=== PATIENT | female | born 1995 | race Caucasian/White ===

== ENCOUNTER 2021-11-25 20:28 | Emergency (ER) | payer OTHER ==
[2021-11-25 20:45] VITALS: TEMP 97.1
--- NOTE | 2021-11-25 21:09 | ED ---
General Adult HPI - General Chief complaint: Arrhythmia/Palpitations Stated complaint: Irregular heartbeat Time Seen by Provider: 11/25/21 20:52 Source: patient Mode of arrival: ambulatory - History of Present Illness Initial comments: Patient presents to the ED with her boyfriend for evaluation. Patient states that for the past couple of months or so, she has been experiencing intermittent rapid heart palpitations and anxiety. Patient states that her symptoms became much more severe this evening while at the store. Patient reports having rapid heart palpitations, a feeling of panic, and associated chest tightness and dyspnea. Patient's boyfriend reports that the patient was hyperventilating at the store this evening. Patient states that her symptoms have currently improved, but she still feels quite anxious. Patient admits to marijuana use earlier today. Patient denies any other illicit drug use today. Patient denies trauma or injury, fever or chills, headache, focal neuro deficit, neck/arm/jaw/back pain, pleuritic pain, cough or cold symptoms, dizziness, syncope, nausea/vomiting/diarrhea, abdominal pain, dysuria or urinary symptoms, leg or calf swelling or pain, or any other symptoms or complaints. Patient states that she is vaccinated for Covid. Patient denies oral contraceptive pill use. - Related Data Home Medications Medication Instructions Recorded Confirmed Multivitamins, Thera [Multivitamin 1 tab PO DAILY 11/25/21 11/25/21 (formulary)] [place]-3 Fatty Acids/Fish Oil [Fish 1 cap PO DAILY 11/25/21 11/25/21 Oil 1,000 mg Softgel] Allergies Allergy/AdvReac Type Severity Reaction Status Date / Time sulfamethoxazole Allergy Rash/Hives Verified 11/25/21 21:22 [From Bactrim] trimethoprim [From Bactrim] Allergy Rash/Hives Verified 11/25/21 21:22 Review of Systems ROS Statement: Those systems with pertinent positive or pertinent negative responses have been documented in the HPI. ROS Other: All systems not noted in ROS Statement are negative. Past Medical History Additional Past Medical History / Comment(s): possible dx for irregular heart beat History of Any Multi-Drug Resistant Organisms: None Reported Past Surgical History: No Surgical Hx Reported Past Psychological History: Anxiety, Depression Smoking Status: Never smoker Past Alcohol Use History: Occasional Past Drug Use History: Marijuana General Exam Limitations: no limitations General appearance: alert, in no apparent distress Head exam: Present: atraumatic, normocephalic Eye exam: Present: normal appearance, PERRL, EOMI ENT exam: Present: mucous membranes moist Neck exam: Present: other (Trachea is in midline) Respiratory exam: Present: normal lung sounds bilaterally. Absent: respiratory distress, wheezes, rales, rhonchi, stridor, chest wall tenderness Cardiovascular Exam: Present: normal rhythm, tachycardia, normal heart sounds, other (Normal radial pulses bilaterally) GI/Abdominal exam: Present: soft. Absent: distended, tenderness, guarding Extremities exam: Present: other (Negative Homans sign bilaterally). Absent: tenderness, pedal edema, calf tenderness Neurological exam: Present: alert, oriented X3. Absent: motor sensory deficit Psychiatric exam: Present: anxious Skin exam: Present: warm, dry, intact, normal color Course Vital Signs 11/25/21 11/25/21 11/25/21 20:39 22:17 23:29 Temperature 97.1 F L Pulse Rate 143 H 106 H 120 H Respiratory 22 16 Rate Blood Pressure 142/77 121/74 O2 Sat by Pulse 100 99 Oximetry - Reevaluation(s) Reevaluation #1: 11/25/21 23:49 Patient states that her symptoms have now improved, and she denies development of any new symptoms while in the ED. Patient remains in sinus tachycardia on the vegetable buncher, but her heart rate has improved significantly. Patient remains alert and breathing comfortably with a normal room air oxygen saturation. Patient and boyfriend are aware the patient's test results, and patient feels comfortable going home with her boyfriend at this time. She was counseled about palpitations, anxiety and substance abuse. She was clearly explained return and follow-up instructions, and she was instructed to have a low threshold for return to the emergency department should her symptoms worsen. Patient feels comfortable with this plan. Patient was also instructed to follow up closely with her primary care provider. EKG Findings - EKG Comments: EKG Findings:: Sinus tachycardia, ventricular rate of 144 bpm, no ectopy, normal OK and QRS interval, QTc interval of 548 ms, normal axis, nonspecific ST abnormality Medical Decision Making - Medical Decision Making Patient's chest x-ray is unremarkable. Patient's labs are also fairly unremarkable, including a negative troponin and d-dimer. Patient's urine drug screen is positive for cocaine and marijuana. I suspect the patient's symptoms are likely secondary to anxiety and/or substance abuse. I do not suspect an emergent medical condition at this time. Will discharge patient home with her boyfriend this time. - Lab Data Result diagrams: 11/25/21 21:38 11/25/21 21:38 Lab Results 11/25/21 11/25/21 11/25/21 Range/Units 21:38 21:38 21:38 WBC 13.3 H (3.8-10.6) k/uL RBC 4.09 (3.80-5.40) m/uL Hgb 13.1 (11.4-16.0) gm/dL Hct 38.6 (34.0-46.0) % MCV 94.4 (80.0-100.0) fL MCH 32.0 (25.0-35.0) pg MCHC 33.9 (31.0-37.0) g/dL RDW 11.9 (11.5-15.5) % Plt Count 309 (150-450) k/uL MPV 7.6 Neutrophils % 78 % Lymphocytes % 16 % Monocytes % 4 % Eosinophils % 0 % Basophils % 0 % Neutrophils # 10.4 H (1.3-7.7) k/uL Lymphocytes # 2.2 (1.0-4.8) k/uL Monocytes # 0.5 (0-1.0) k/uL Eosinophils # 0.1 (0-0.7) k/uL Basophils # 0.0 (0-0.2) k/uL PT 10.2 (9.0-12.0) sec INR 0.9 (<1.2) APTT 24.3 (22.0-30.0) sec D-Dimer 0.19 (<0.60) mg/L FEU Sodium 141 (137-145) mmol/L Potassium 3.5 (3.5-5.1) mmol/L Chloride 106 (98-107) mmol/L Carbon Dioxide 22 (22-30) mmol/L Anion Gap 13 mmol/L BUN 14 (7-17) mg/dL Creatinine 1.17 H (0.52-1.04) mg/dL Est GFR (CKD-EPI)AfAm 74 (>60 ml/min/1.73 sqM) Est GFR (CKD-EPI)NonAf 65 (>60 ml/min/1.73 sqM) Glucose 161 H (74-99) mg/dL Calcium 9.8 (8.4-10.2) mg/dL Magnesium 1.6 (1.6-2.3) mg/dL Total Bilirubin 0.4 (0.2-1.3) mg/dL AST 26 (14-36) U/L ALT 22 (4-34) U/L Alkaline Phosphatase 84 (38-126) U/L Troponin I (0.000-0.034) ng/mL Total Protein 7.5 (6.3-8.2) g/dL Albumin 4.4 (3.5-5.0) g/dL TSH 1.240 (0.465-4.680) mIU/L HCG, Qual Not Detected Urine Opiates Screen (NotDetected) Ur Oxycodone Screen (NotDetected) Urine Methadone Screen (NotDetected) Ur Propoxyphene Screen (NotDetected) Ur Barbiturates Screen (NotDetected) U Tricyclic Antidepress (NotDetected) Ur Phencyclidine Scrn (NotDetected) Ur Amphetamines Screen (NotDetected) U Methamphetamines Scrn (NotDetected) U Benzodiazepines Scrn (NotDetected) Urine Cocaine Screen (NotDetected) U Marijuana (THC) Screen (NotDetected) 11/25/21 11/25/21 Range/Units 21:38 22:48 WBC (3.8-10.6) k/uL RBC (3.80-5.40) m/uL Hgb (11.4-16.0) gm/dL Hct (34.0-46.0) % MCV (80.0-100.0) fL MCH (25.0-35.0) pg MCHC (31.0-37.0) g/dL RDW (11.5-15.5) % Plt Count (150-450) k/uL MPV Neutrophils % % Lymphocytes % % Monocytes % % Eosinophils % % Basophils % % Neutrophils # (1.3-7.7) k/uL Lymphocytes # (1.0-4.8) k/uL Monocytes # (0-1.0) k/uL Eosinophils # (0-0.7) k/uL Basophils # (0-0.2) k/uL PT (9.0-12.0) sec INR (<1.2) APTT (22.0-30.0) sec D-Dimer (<0.60) mg/L FEU Sodium (137-145) mmol/L Potassium (3.5-5.1) mmol/L Chloride (98-107) mmol/L Carbon Dioxide (22-30) mmol/L Anion Gap mmol/L BUN (7-17) mg/dL Creatinine (0.52-1.04) mg/dL Est GFR (CKD-EPI)AfAm (>60 ml/min/1.73 sqM) Est GFR (CKD-EPI)NonAf (>60 ml/min/1.73 sqM) Glucose (74-99) mg/dL Calcium (8.4-10.2) mg/dL Magnesium (1.6-2.3) mg/dL Total Bilirubin (0.2-1.3) mg/dL AST (14-36) U/L ALT (4-34) U/L Alkaline Phosphatase (38-126) U/L Troponin I <0.012 (0.000-0.034) ng/mL Total Protein (6.3-8.2) g/dL Albumin (3.5-5.0) g/dL TSH (0.465-4.680) mIU/L HCG, Qual Urine Opiates Screen Not Detected (NotDetected) Ur Oxycodone Screen Not Detected (NotDetected) Urine Methadone Screen Not Detected (NotDetected) Ur Propoxyphene Screen Not Detected (NotDetected) Ur Barbiturates Screen Not Detected (NotDetected) U Tricyclic Antidepress Not Detected (NotDetected) Ur Phencyclidine Scrn Not Detected (NotDetected) Ur Amphetamines Screen Not Detected (NotDetected) U Methamphetamines Scrn Not Detected (NotDetected) U Benzodiazepines Scrn Not Detected (NotDetected) Urine Cocaine Screen Detected H (NotDetected) U Marijuana (THC) Screen Detected H (NotDetected) - Radiology Data Chest x-ray: No acute cardiopulmonary process. Disposition Clinical Impression: Palpitations, Anxiety, Substance abuse Disposition: HOME SELF-CARE Condition: Stable Instructions (If sedation given, give patient instructions): Heart Palpitations (ED), Cocaine Abuse (ED), Anxiety (ED) Additional Instructions: Return to the ER immediately should you develop new or worsening pain, increased shortness of breath, feeling dizzy or faint, or new or worsening symptoms. Follow up closely with your primary care provider. Is patient prescribed a controlled substance at d/c from ED?: No Referrals: Stephanie Garcia MD [Primary Care Provider] - 1-2 days Time of Disposition: 23:52
[2021-11-25] MEDS ORDERED: SODIUM CHLORIDE 0.9% 1,000 ML IV STA (21:16)
[2021-11-25] MEDS ORDERED: LORazepam 2 MG/ML INJ IV STA (21:16)
--- NOTE | 2021-11-25 21:55 | XR ---
EXAMINATION TYPE: XR chest 2V DATE OF EXAM: 11/25/2021 COMPARISON: NONE HISTORY: Irregular heart rate. TECHNIQUE: Frontal and lateral views of the chest are obtained. FINDINGS: There is no focal air space opacity, pleural effusion, or pneumothorax seen. The cardiac silhouette size is within normal limits. The osseous structures are intact. IMPRESSION: No acute cardiopulmonary process.
[2021-11-25 22:04] LABS: Basophils % (A) 0 %; Eosinophils # (A) 0.1 k/uL (0-0.7); Eosinophils % (A) 0 %; HCT 38.6 % (34.0-46.0); HGB 13.1 gm/dL (11.4-16.0); Lymphocytes # (A) 2.2 k/uL (1.0-4.8); Lymphocytes % (A) 16 %; MCHC 33.9 g/dL (31.0-37.0); MCV 94.4 fL (80.0-100.0); Mean Platelet Volume 7.6; Monocytes # (A) 0.5 k/uL (0-1.0); Monocytes % (A) 4 %; Neutrophils # (A) 10.4 k/uL (1.3-7.7); Neutrophils % (A) 78 %; Platelet Count 309 k/uL (150-450); RBC 4.09 m/uL (3.80-5.40); RDW 11.9 % (11.5-15.5); WBC 13.3 k/uL (3.8-10.6)
[2021-11-25 22:15] LABS: ALT 22 U/L (4-34); AST 26 U/L (14-36); African American GFR (CKD) 74 (>60 ml/min/1.73 sqM); Albumin 4.4 g/dL (3.5-5.0); Alkaline Phosphatase 84 U/L (38-126); Anion Gap 13 mmol/L; Blood Urea Nitrogen 14 mg/dL (7-17); Calcium 9.8 mg/dL (8.4-10.2); Carbon Dioxide 22 mmol/L (22-30); Chloride 106 mmol/L (98-107); Glucose 161 mg/dL (74-99); Magnesium 1.6 mg/dL (1.6-2.3); Non-African American GFR(CKD) 65 (>60 ml/min/1.73 sqM); Potassium 3.5 mmol/L (3.5-5.1); Sodium 141 mmol/L (137-145); Total Bilirubin 0.4 mg/dL (0.2-1.3); Total Protein 7.5 g/dL (6.3-8.2)
[2021-11-25 22:49] LABS: INR 0.9 (<1.2); Prothrombin Time 10.2 sec (9.0-12.0)
[2021-11-25 22:50] LABS: Partial Thromboplastin Time 24.3 sec (22.0-30.0)
[2021-11-25 23:28] LABS: HCG,Qualitative Serum Not Detected
[2021-11-25 23:30] VITALS: BP 121/74; PULSE 120; RESP 16
[2021-11-25 23:44] LABS: Amphetamine Screen,Urine Not Detected (NotDetected); Barbiturate Screen,Urine Not Detected (NotDetected); Benzodiazepines Screen,Urine Not Detected (NotDetected); Cocaine Screen,Urine Detected (NotDetected); Methadone Screen, Urine Not Detected (NotDetected); Opiate Screen,Urine Not Detected (NotDetected); Oxycodone Screen, Urine Not Detected (NotDetected); Phencyclidine Screen,Urine Not Detected (NotDetected); Tricyclic Antidepressant,Urine Not Detected (NotDetected); Urn Cannabinoid Scrn Detected (NotDetected)
== END 2021-11-25 23:59 | disposition home or self-care (01) ==
LOC: EC 20:28
DX: R00.2 Palpitations (principal); F41.9 Anxiety disorder, unspecified; F14.10 Cocaine abuse, uncomplicated; F32.A Depression, unspecified; F12.90 Cannabis use, unspecified, uncomplicated; Z72.89 Other problems related to lifestyle
CPT/HCPCS: 36415; 93005; 85379; 80053; 83735; 84443; 84484; 85025; 85610; 85730; 84703; 80306; 71046; 99285; 96374; 96361 ×2; J2060

== ENCOUNTER 2023-06-18 05:57 | Inpatient (IN) | payer OTHER ==
[2023-06-18] MEDS ORDERED: TERBUTALINE 1 MG/ML VIAL SQ PRN (06:26)
[2023-06-18] MEDS ORDERED: TRANEXAMIC 1,000 MG/100ML-NACL 1,000 MG in EMPTY BAG 1 BAG IV PRN (06:26)
[2023-06-18] MEDS ORDERED: CARBOPROST TROMETHAMINE 250 MCG/ML 1 ML AMP IM PRN (06:26)
[2023-06-18] MEDS ORDERED: miSOPROStoL 200 MCG TAB PO PRN (06:26)
[2023-06-18] MEDS ORDERED: OXYTOCIN 10 UNIT/ML 1 ML VIAL IM PRN (06:26)
[2023-06-18] MEDS ORDERED: METHYLERGONOVINE 0.2 MG/ML 1 ML AMP IM PRN (06:26)
[2023-06-18] MEDS ORDERED: LIDOCAINE 0.5% (PF) 5 MG/ML (50 ML SDV) SQ PRN (06:26)
[2023-06-18] MEDS ORDERED: OXYTOCIN 30 UNITS/500 ML NS 30 UNIT in SALINE 1 500ML.BAG IV SCH ×2 (06:30→12:30)
[2023-06-18] MEDS: LACTATED RINGERS 1,000 ML IV SCH ×2 (06:31→10:01)
[2023-06-18 07:04] LABS: Basophils % (A) 0 %; Eosinophils % (A) 0 %; HCT 35.2 % (34.0-46.0); HGB 12.5 gm/dL (11.4-16.0); Lymphocytes # (A) 1.9 k/uL (1.0-4.8); Lymphocytes % (A) 21 %; MCH 33.7 pg (25.0-35.0); MCHC 35.5 g/dL (31.0-37.0); MCV 94.7 fL (80.0-100.0); Mean Platelet Volume 11.2; Monocytes # (A) 0.6 k/uL (0-1.0); Monocytes % (A) 6 %; Neutrophils # (A) 6.6 k/uL (1.3-7.7); Neutrophils % (A) 71 %; Platelet Count 139 k/uL (150-450); RBC 3.72 m/uL (3.80-5.40); RDW 13.8 % (11.5-15.5); WBC 9.3 k/uL (3.8-10.6)
--- NOTE | 2023-06-18 08:35 | P.HPOB ---
History of Present Illness H&P Date: 06/18/23 Chief Complaint: Elective induction of labor Ms. Edwards is a 27 year old at 40 weeks with EDC of 06/18/2023 (by LMP consistent with 8 week US) who is being induced today for post-dates. The has been complicated by anxiety and depression which have been stable without medications. The patient also has a history of HSV. Her last outbreak was years ago. She started Valtrex prophylaxis at 36 weeks. The fetus is estimated to be approximately 9 pounds by 37 week US (measuring the fetus in the 77%ile). Obstetric history: 1 FTVD infant weighing 7#5 ounces, no complications Maternal work-up: blood type O positive, antibody screen negative, rubella immune, VDRL non-reactive, HBsAg negative, HIV negative, 1 hour GTT 121, GBS negative Past medical history: anxiety, depression, HSV Type II Past surgical history: None Medications: PNVs, Valtrex Past Medical History Additional Past Medical History / Comment(s): possible dx for irregular heart beat History of Any Multi-Drug Resistant Organisms: None Reported Past Surgical History: No Surgical Hx Reported Past Anesthesia/Blood Transfusion Reactions: No Reported Reaction Additional Past Anesthesia/Blood Transfusion Reaction / Comment(s): Patient has never received blood products or anesthesia Past Psychological History: Anxiety, Depression Smoking Status: Vaper Past Alcohol Use History: Occasional Medications and Allergies Home Medications Medication Instructions Recorded Confirmed Type Vit No.179/Iron/Folic 1 each PO DAILY 06/18/23 06/18/23 History [ Tablet] Allergies Allergy/AdvReac Type Severity Reaction Status Date / Time sulfamethoxazole Allergy Rash/Hives Verified 06/18/23 06:26 [From Bactrim] trimethoprim [From Bactrim] Allergy Rash/Hives Verified 06/18/23 06:26 Exam Vital Signs Temp Pulse Resp BP Pulse Ox 06/18/23 06:26 97.1 F L 95 16 143/85 97 Intake and Output 06/17/23 06/18/23 06/18/23 22:59 06:59 14:59 Other: Weight 81.647 kg Focused physical exam is performed. This is a healthy-appearing in no apparent distress. She has non-labored breathing and is conversing normally. Abdomen is gravid, non-tender. Cervical exam is 4/80/-2. AROM is undertaken for clear fluid. Extremities are non-tender, non-edematous. heart tracing sh ows 120 baseline, moderate variability, + accelerations, no decelerations. Tocometer is graphing contractions every 2-5 minutes. Pitocin is running. Results Result Diagrams: 06/18/23 06:45 Abnormal Lab Results - Last 24 Hours (Table) 06/18/23 Range/Units 06:45 RBC 3.72 L (3.80-5.40) m/uL Plt Count 139 L (150-450) k/uL Assessment and Plan Assessment: 27 year old at 40 weeks presenting for IOL Plan: Admit, NPO, mIVF, pitocin per protocol, epidural prn. Continious electronic monitoring, close monitoring of patient. Time with Patient: Less than 30
[2023-06-18] MEDS ORDERED: ROPIVACAINE 5 MG/ML 20 ML AMPULE ONE (09:32)
[2023-06-18] MEDS ORDERED: SODIUM CHLORIDE 0.9% 100 ML BAG ONE (09:32)
[2023-06-18] MEDS ORDERED: fentaNYL (PF) 50 MCG/ML 5 ML AMP ONE (09:32)
[2023-06-18] MEDS ORDERED: SIMETHICONE 80 MG CHEWABLE PO PRN (12:29)
[2023-06-18] MEDS ORDERED: HYDROCORTISONE 2.5% RECTAL CREAM 30 GM TUBE RECTAL PRN (12:29)
[2023-06-18] MEDS ORDERED: LANOLIN CREAM 5 GM TUBE TOPICAL PRN (12:29)
[2023-06-18] MEDS ORDERED: ACETAMINOPHEN TAB 325 MG TAB PO PRN (12:29)
[2023-06-18] MEDS ORDERED: diphenhydrAMINE 50 MG/ML 1 ML VIAL IVP PRN ×2 (12:29)
[2023-06-18] MEDS ORDERED: ZOLPIDEM 5 MG TAB PO PRN (12:29)
[2023-06-18] MEDS ORDERED: diphenhydrAMINE 25 MG CAP PO PRN (12:29)
[2023-06-18] MEDS ORDERED: diphenhydrAMINE 50 MG CAP PO PRN (12:29)
[2023-06-18] MEDS ORDERED: BENZOCAINE/MENTHOL SPRAY 1 GM/SPRAY AEROSOL TOPICAL PRN (12:29)
--- NOTE | 2023-06-18 12:34 | P.PROBDLV ---
Vaginal Delivery Note - . Vaginal Delivery Note: DATE OF SERVICE: 06/18/2023 PROCEDURE: Normal Vaginal Delivery ATTENDING: Dr. Giovanna Collazo MD ESTIMATED BLOOD LOSS: 200 mL FINDINGS: VMI, Apgars 8/9. Weight 9 pounds and 12 ounces (4425 grams) PROCEDURE: Ms. Edwards is a 27 year old at 40 weeks presenting to labor and delivery for elective induction of labor. The has been complicated by anxiety and depression that did not require medication. For further details, please review the admitting H&P. Pitocin induction was started and AROM was undertaken at 821 revealing clear amniotic fluid. The patient received epidural anesthesia per her request. heart tones were Category I throughout the first stage of labor. The patient was completely dilated at 1127. During the second stage of labor, recurrent deep decelerations to the 70s were noted that resolved with position changes and supplemental oxygen. The patient pushed the head effectively so pushing efforts were continued. The head crowned and delivered over an intact perineum, followed by the shoulders and the body. A via ble male infant was delivered at 1159. The was placed on the maternal abdomen and bulb suctioned. Cord was clamped and cut after a 30-second delay. The was handed off to the pediatric team. Placenta was delivered whole with gentle cord traction at 1204. Oxytocin was started to facilitate uterine tone. Uterine fundus was found to be firm and below the umbilicus upon fundal massage. Thorough examination of the cervix, vagina, periurethral area, and perineum revealed a midline second degree laceration. This was repaired with 2-0 and 3-0 Vicryl in the usual fashion. The patient is stable and allowed to begin the bonding process. Patient stable .
[2023-06-18] MEDS: IBUPROFEN 600 MG TAB PO PRN (13:02)
[2023-06-18 16:37] VITALS: RESP 16
[2023-06-18] MEDS: SENNOSIDES-DOCUSATE SODIUM 1 EACH TAB PO SCH (20:41)
[2023-06-19] MEDS: IBUPROFEN 600 MG TAB PO PRN ×3 (01:20→10:32)
[2023-06-19] MEDS: LACTATED RINGERS 1,000 ML IV SCH (06:47)
[2023-06-19 06:54] LABS: Basophils % (A) 0 %; Eosinophils % (A) 0 %; HCT 32.4 % (34.0-46.0); HGB 11.5 gm/dL (11.4-16.0); Lymphocytes % (A) 18 %; MCH 33.6 pg (25.0-35.0); MCHC 35.5 g/dL (31.0-37.0); MCV 94.7 fL (80.0-100.0); Mean Platelet Volume 10.9; Monocytes # (A) 0.7 k/uL (0-1.0); Monocytes % (A) 6 %; Neutrophils # (A) 8.3 k/uL (1.3-7.7); Neutrophils % (A) 75 %; Platelet Count 115 k/uL (150-450); RBC 3.42 m/uL (3.80-5.40); RDW 13.9 % (11.5-15.5); WBC 11.1 k/uL (3.8-10.6)
--- NOTE | 2023-06-19 08:03 | P.DS ---
Providers Date of admission: 06/18/23 05:57 Expected date of discharge: 06/19/23 Attending physician: Giovanna Collazo MD Primary care physician: Stated None Hospital Course: This is a 27-year-old now day #1 status post a normal vaginal delivery following elective induction of labor at 40 weeks gestation. Labor progressed normally with Pitocin induction and AROM revealing clear amniotic fluid. The patient pushed for approximately 20 minutes and had a viable male . Her course has been uneventful, and she desires discharge home today. The patient is doing well this morning and had no acute events overnight. She has no complaints this morning. She reports minimal lochia, passing flatus, voiding without difficulty, ambulating, and eating/drinking without nausea or vomiting. Infant doing well at bedside, s/p circumcision. She denies chest pain, shortness of breathing, fevers, or chills overnight. She denies pain or swelling in the legs. restrictions are reviewed with the patient including pelvic rest for 6 weeks. The patient is encouraged to call the office if she experiences any heavy bleeding, foul-smelling discharge, breast complaints, or any if she has any other concerns. She will follow up in the office in 6 weeks for appointment. All questions are answered. Assessment: 27 year old PPD#1 s/p normal vaginal delivery of viable female Patient Condition at Discharge: Good Plan - Discharge Summary New Discharge Prescriptions: New Ibuprofen [Motrin] 600 mg PO Q6HR PRN #30 tab PRN Reason: Mild Pain (Scale 1 To 3) Acetaminophen Tab [Tylenol] 650 mg PO Q6H PRN #30 tab PRN Reason: Mild Pain (Scale 1 To 3) No Action Vit No.179/Iron/Folic [ Tablet] 1 each PO DAILY Discharge Medication List Vit No.179/Iron/Folic [ Tablet] 1 each PO DAILY 06/18/23 [History] Acetaminophen Tab [Tylenol] 650 mg PO Q6H PRN #30 tab 06/19/23 [Rx] Ibuprofen [Motrin] 600 mg PO Q6HR PRN #30 tab 06/19/23 [Rx] Follow up Appointment(s)/Referral(s): Giovanna Collazo MD [STAFF PHYSICIAN] - 6 Weeks Activity/Diet/Wound Care/Special Instructions: Instructions 1. Do not begin any exercise program for 3 weeks. 2. Do not resume sexual relations for 6 weeks or longer if uncomfortable. 3. You may take tub baths or showers at any time. 4. You may use tampons if desired after 6 weeks. 5. Keep any areas repaired with stitches clean and dry. 6. If you are not nursing, wear a good fitting, supportive bra during the day and limit fluid intake for at least 1 week to prevent breast engorgement. 7. Call the office, , within the next week to make appointment for your 6 week checkup if it has not already been made. 8. Report any of the following occurrences to the doctor promptly: a. Heavy, excessive bleeding b. Chills, fever c. Burning or frequency of urination d. Pain or redness and breasts if nursing e. Increasing pain or swelling of vulva (stitches). Discharge Disposition: HOME SELF-CARE
[2023-06-19 08:15] VITALS: BP 119/81; PULSE 89; TEMP 98.2
[2023-06-19] MEDS: SENNOSIDES-DOCUSATE SODIUM 1 EACH TAB PO SCH (08:15)
== END 2023-06-19 13:45 | disposition home or self-care (01) | DRG 560 ==
LOC: 4FBP 05:57
PROVIDERS: ADMIT Obstetrics & Gynecology; ATTEND Obstetrics & Gynecology
PROC: 10907ZC Drainage of Amniotic Fluid, Therapeutic from Products of Conception, Via Natural or Artificial Opening (ICD-10-PCS; principal; 2023-06-18)
PROC: 3E033VJ Introduction of Other Hormone into Peripheral Vein, Percutaneous Approach (ICD-10-PCS; 2023-06-18)
PROC: 10E0XZZ Delivery of Products of Conception, External Approach (ICD-10-PCS; 2023-06-18)
PROC: 0KQM0ZZ Repair Perineum Muscle, Open Approach (ICD-10-PCS; 2023-06-18)
DX: O48.0 Post-term pregnancy (principal); F32.A Depression, unspecified; F41.9 Anxiety disorder, unspecified; O70.1 Second degree perineal laceration during delivery; O99.344 Other mental disorders complicating childbirth; Z37.0 Single live birth; Z3A.40 40 weeks gestation of pregnancy
CPT/HCPCS: 85025; 86850; 86900; 86901

== ENCOUNTER 2024-01-08 07:19 | Emergency (ER) | payer OTHER ==
--- NOTE | 2024-01-08 08:08 | ED ---
URI HPI - General Chief Complaint: Upper Respiratory Infection Stated Complaint: poss rsv/flu Time Seen by Provider: 01/08/24 07:37 Source: patient, RN notes reviewed Mode of arrival: ambulatory Limitations: no limitations - History of Present Illness Initial Comments: This is a 28-year-old female who presents to the emergency department for coughing and congestion. Symptoms started a couple of days ago. She brought her 6-month-old to the emergency department 2 days ago and he tested positive for influenza and RSV. She has now started to develop coughing, some shortness of breath, and a burning sensation in her chest. States that she feels like this is from the coughing. It does not feel like acid reflux. She did have some nausea and bodyaches that have since started to improve. She has also had fevers and headaches. Her largest concern is wanting to make sure that there is nothing else going on that she can pass on to her infant. MD Complaint: cough, nasal congestion - Related Data Home Medications Medication Instructions Recorded Confirmed Vit No.179/Iron/Folic 1 each PO DAILY 06/18/23 06/18/23 [ Tablet] Previous Rx's Medication Instructions Recorded Acetaminophen Tab [Tylenol] 650 mg PO Q6H PRN #30 tab 06/19/23 Ibuprofen [Motrin] 600 mg PO Q6HR PRN #30 tab 06/19/23 Ipratropium-Albuterol Nebulize 3 ml INHALATION Q4-6H PRN #90 ml 01/08/24 [Duoneb 0.5 mg-3 mg/3 ml Soln] Promethazine/Dextromethorphan 5 ml PO Q4-6H PRN #473 ml 01/08/24 [Promethazine-Dm Syrup] Allergies Allergy/AdvReac Type Severity Reaction Status Date / Time sulfamethoxazole Allergy Rash/Hives Verified 06/18/23 06:26 [From Bactrim] trimethoprim [From Bactrim] Allergy Rash/Hives Verified 06/18/23 06:26 Review of Systems ROS Statement: Those systems with pertinent positive or pertinent negative responses have been documented in the HPI. ROS Other: All systems not noted in ROS Statement are negative. Past Medical History Additional Past Medical History / Comment(s): possible dx for irregular heart beat History of Any Multi-Drug Resistant Organisms: None Reported Past Surgical History: No Surgical Hx Reported Past Anesthesia/Blood Transfusion Reactions: No Reported Reaction Additional Past Anesthesia/Blood Transfusion Reaction / Comment(s): Patient has never received blood products or anesthesia Past Psychological History: Anxiety, Depression Past Alcohol Use History: None Reported, Occasional General Exam Limitations: no limitations General appearance: alert, in no apparent distress Head exam: Present: atraumatic, normocephalic, normal inspection Respiratory exam: Present: normal lung sounds bilaterally. Absent: respiratory distress, wheezes, rales, rhonchi, stridor Cardiovascular Exam: Present: regular rate, normal rhythm, normal heart sounds. Absent: systolic murmur, diastolic murmur, rubs, gallop, clicks GI/Abdominal exam: Present: soft, normal bowel sounds. Absent: distended, tenderness, guarding, rebound, rigid Neurological exam: Present: alert, oriented X3, CN II-XII intact Psychiatric exam: Present: normal affect, normal mood Skin exam: Present: warm, dry, intact, normal color. Absent: rash Course Vital Signs 01/08/24 01/08/24 01/08/24 07:30 09:22 09:32 Temperature 99.6 F Pulse Rate 88 90 86 Respiratory 16 Rate Blood Pressure 117/81 O2 Sat by Pulse 98 Oximetry 01/08/24 09:46 Temperature 99.1 F Pulse Rate 89 Respiratory 18 Rate Blood Pressure 126/89 O2 Sat by Pulse 98 Oximetry Medical Decision Making - Medical Decision Making This is a 28 year old female who presents to the emergency department for coughing and congestion. Was pt. sent in by a medical professional or institution? @ -No Did you speak to anyone other than the patient for history? @ -No Did you review nursing and triage notes? @ -Yes, and I agree, it is accurate with regards to the patient's symptoms. Were old charts reviewed? @ -No Differential Diagnosis? @ -Differential Cough: Influenza, Covid, RSV, croup, allergic rhinitis, GERD, pneumonia, bronchitis, COPD, viral pharyngitis, streptococcal pharyngitis, this is not meant to be an all-inclusive list. EKG interpreted by me (3pts min.)? @ -Not obtained X-rays interpreted by me (1pt min.)? @ -Chest x-ray obtained, my interpretation identifies no localized consolidations or infiltrates. CT interpreted by me (1pt min.)? @ -Not obtained U/S interpreted by me (1pt. min.)? @ -Not obtained What testing was considered but not performed? (CT, X-rays, U/S, labs)? Why? @ -None What meds were considered but not given? Why? @ -None Did you discuss the management of the patient with other professionals? @ -No Did you reconcile home meds? @ -No Was smoking cessation discussed for >3mins.? @ -No Was critical care preformed (if so, how long)? @ -No Were there social determinants of health that impacted care today? How? (Homelessness, low income, unemployed, alcoholism, drug addiction, transportation, low edu. Level, literacy, decrease access to med. care, group home, rehab)? @ -No Was there de-escalation of care discussed even if they declined? (Discuss DNR or withdrawal of care, Hospice)? @ -No What co-morbidities impacted this encounter? (DM, HTN, Smoking, COPD, CAD, Cancer, CVA, Hep., AIDS, mental health diagnosis, sleep apnea, morbid obesity)? @ -None Was patient admitted / discharged? @ -Discharged. Patient positive for influenza A. COVID and RSV testing negative. Chest x-ray reveals no acute process. She was given a DuoNeb breathing treatment and Tessalon Perles, but did not find significant benefit with these. Prescription for Promethazine DM cough syrup provided with dosing instructions reviewed to see if that is more effective. She was also given a prescription for DuoNeb breathing treatments to use at home if she would like to try them again. Otherwise advised getting plenty of rest and drinking plenty of fluids. Patient discharged home in stable condition. Undiagnosed new problem with uncertain prognosis? @ -None Drug Therapy requiring intensive monitoring for toxicity (Heparin, Nitro, Insulin, Cardizem)? @ -None Were any procedures done? @ -None Diagnosis/symptom? @ -Influenza A Acute, or Chronic, or Acute on Chronic? @ -Acute Uncomplicated (without systemic symptoms) or Complicated (systemic symptoms)? @ -Uncomplicated Side effects of treatment? @ -None Exacerbation, Progression, or Severe Exacerbation] @ -Not applicable Poses a threat to life or bodily function? @ -No Return precautions reviewed in depth, the patient is instructed to return to the emergency department with any new, worsening, or concerning symptoms. Patient verbalized understanding. This case was discussed in detail with the attending ED physician, Dr. Valverde. Presentation, findings, and treatment plan discussed in detail as well. - Lab Data Lab Results 01/08/24 Range/Units 07:59 Influenza Type A (PCR) Detected A (Not Detectd) Influenza Type B (PCR) Not Detected (Not Detectd) RSV (PCR) Not Detected (Not Detectd) SARS-CoV-2 (PCR) Not Detected (Not Detectd) - Radiology Data Radiology results: report reviewed, image reviewed Disposition Clinical Impression: Influenza A Disposition: HOME SELF-CARE Instructions (If sedation given, give patient instructions): Influenza (ED) Additional Instructions: Return to the emergency department with any new, worsening, or concerning symptoms. Both the DuoNeb breathing treatments and cough medication can be used every 4-6 hours. Make sure you get plenty of rest and drink plenty of fluids. Follow up with your primary care provider in 1-2 days. Prescriptions: Ipratropium-Albuterol Nebulize [Duoneb 0.5 mg-3 mg/3 ml Soln] 3 ml INHALATION Q4-6H PRN #90 ml PRN Reason: Cough Promethazine/Dextromethorphan [Promethazine-Dm Syrup] 5 ml PO Q4-6H PRN #473 ml PRN Reason: Cough Is patient prescribed a controlled substance at d/c from ED?: No Referrals: Stephanie Garcia MD [Primary Care Provider] - 1-2 days Time of Disposition: 09:44
[2024-01-08] MEDS: BENZONATATE 100 MG CAP PO STA (08:26)
--- NOTE | 2024-01-08 08:41 | XR ---
EXAMINATION TYPE: XR chest 2V DATE OF EXAM: 01/08/2024 8:20 AM CLINICAL INDICATION:Female, 28 years old with history of cough; COMPARISON: Chest radiographs from 11/25/2021 TECHNIQUE: XR chest 2V Frontal and lateral views of the chest. FINDINGS: Lungs/Pleura: There is no evidence of pleural effusion, focal consolidation, or pneumothorax. Pulmonary vascularity: Unremarkable. Heart/mediastinum: Cardiomediastinal silhouette is unremarkable. Musculoskeletal: No acute osseous pathology. IMPRESSION: No acute cardiopulmonary disease/process.
[2024-01-08] MEDS: IPRATROPIUM-ALBUTEROL 3 ML NEB INHALATION STA (09:20)
[2024-01-08 09:59] VITALS: PULSE 89
[2024-01-08 10:00] VITALS: BP 126/89; RESP 18; TEMP 99.1
== END 2024-01-08 09:46 | disposition home or self-care (01) ==
LOC: EC 07:19
DX: J10.1 Influenza due to other identified influenza virus with other respiratory manifestations (principal); Z86.59 Personal history of other mental and behavioral disorders; Z88.1 Allergy status to other antibiotic agents; Z88.2 Allergy status to sulfonamides; Z20.822 Contact with and (suspected) exposure to COVID-19
CPT/HCPCS: 71046; 87636; 94640; 99283